=== PATIENT | male | born 2000 | race Caucasian/White ===

== ENCOUNTER 2018-08-10 14:24 | Emergency (ER) | payer OTHER ==
[2018-08-10 14:51] VITALS: BP 117/86
[2018-08-10 15:08] LABS: BILIRUBIN,URINE NEG (NEG); CLARITY,URINE HAZY; COLOR,URINE YELLOW; GLUCOSE,URINE NEG (NEG)
[2018-08-10 15:09] LABS: BACTERIA,URINE 0 /HPF (0-FEW); NITRITE,URINE NEG (NEG); SPERM,URINE PRESENT /HPF; SQUAMOUS EPITHELIAL CELL,UR OCC /LPF; UROBILINOGEN,URINE 0.2 mg/dL (0.2 mg/dL); WBC,URINE 0 /HPF (0-4)
--- NOTE | 2018-08-10 15:11 | PHYS DOC ---
Adult General Chief Complaint Chief Complaint: TESTICULAR PAIN OR INJURY [facility] HPI 18-year-old male presents with left testicular pain. This pain started suddenly about one hour ago. The patient was having sexual relations at the time. He denies any trauma or direct impact to the area. The pain has not subsided, and he is concerned for testicular torsion. The patient has no urethral discharge. He denies dysuria or increased frequency. He denies fever or chills. Review of Systems Review of Systems Constitutional: Denies fever or chills [] Eyes: Denies change in visual acuity, redness, or eye pain [] HENT: Denies nasal congestion or sore throat [] Respiratory: Denies cough or shortness of breath [] Cardiovascular: No additional information not addressed in HPI [] GI: Denies abdominal pain, nausea, vomiting, bloody stools or diarrhea [] : Left testicular pain[] Musculoskeletal: Denies back pain or joint pain [] Integument: Denies rash or skin lesions [] Neurologic: Denies headache, focal weakness or sensory changes [] Endocrine: Denies polyuria or polydipsia [] All other systems were reviewed and found to be within normal limits, except as documented in this note. Allergies Allergies Allergies Coded Allergies Type Severity Reaction Last Updated Verified No Known Drug Allergies 08/10/18 No Physical Exam Physical Exam Constitutional: Well developed, well nourished, no acute distress, non-toxic appearance. [] HENT: Normocephalic, atraumatic, bilateral external ears normal, oropharynx moist, no oral exudates, nose normal. [] Eyes: PERRLA, EOMI, conjunctiva normal, no discharge. [] Neck: Normal range of motion, no tenderness, supple, no stridor. [] Cardiovascular:Heart rate regular rhythm, no murmur [] Lungs & Thorax: Bilateral breath sounds clear to auscultation [] Abdomen: Bowel sounds normal, soft, no tenderness, no masses, no pulsatile masses. [] Skin: Warm, dry, no erythema, no rash. [] Back: No tenderness, no CVA tenderness. [] Extremities: No tenderness, no cyanosis, no clubbing, ROM intact, no edema. [] Neurologic: Alert and oriented X 3, normal motor function, normal sensory function, no focal deficits noted. [] Psychologic: Affect normal, judgement normal, mood normal. : normal external exam, circumcised, tenderness to palpation of left testicle, no mass or obvious swelling compared to right. [] EKG EKG [] Radiology/Procedures Radiology/Procedures [] Impressions: Scrotal ultrasound, 08/10/2018: HISTORY: Left-sided pain The right testicle measures 4.5 x 2.8 x 2.5 cm while the left testicle measures 4.8 x 3.8 x 2.7 cm. There is blood flow in both testicles. No testicular mass is seen. No epididymal abnormality is detected. There is a small amount of fluid in the scrotal sac bilaterally. IMPRESSION: 1. No testicular abnormality is detected. 2. Small bilateral hydroceles. Electronically signed by: Mike Rose MD (08/10/2018 3:33 PM) [facility] DICTATED AND SIGNED BY: MIKE ROSE MD DATE: 08/10/18 1533 CC: CHRIS SANCHEZ DO; DO KELLY ~ Course & Med Decision Making Course & Med Decision Making Pertinent Labs and Imaging studies reviewed. (See chart for details) The patient's testicular ultrasound is negative for torsion or other significant findings. Based on the history and physical exam, the patient likely just strained the area or had an inadvertent twist or trauma that he does not rem ember. I have advised conservative therapy with NSAIDs and ice. He is stable for discharge at this time. [] Dragon Disclaimer Dragon Disclaimer This electronic medical record was generated, in whole or in part, using a voice recognition dictation system. Departure Departure: Impression: Primary Impression: Testicle pain Disposition: 01 HOME, SELF-CARE Condition: STABLE Referrals: DO KELLY (PCP) Patient Instructions: Testicular Torsion Additional Instructions: You can use 600 mg of ibuprofen 3 times a day as needed for pain. You can also ice the area 2-3 times a day for 10-15 minutes at a time. Always put a piece of cloth between the ice and your skin to avoid frostbite. Do not leave ice on the area longer than 15 minutes. CHRIS SANCHEZ DO August 10, 2018 15:11
--- NOTE | 2018-08-10 15:36 | RAD ---
Scrotal ultrasound, 08/10/2018: HISTORY: Left-sided pain The right testicle measures 4.5 x 2.8 x 2.5 cm while the left testicle measures 4.8 x 3.8 x 2.7 cm. There is blood flow in both testicles. No testicular mass is seen. No epididymal abnormality is detected. There is a small amount of fluid in the scrotal sac bilaterally. IMPRESSION: 1. No testicular abnormality is detected. 2. Small bilateral hydroceles. Electronically signed by: Mike Rose MD (08/10/2018 3:33 PM) [facility]
== END 2018-08-10 15:48 | disposition home or self-care (01) ==
LOC: ER 14:24
DX: N50.812 Left testicular pain (principal); N43.2 Other hydrocele
CPT/HCPCS: 76870; 81001; 99285-25